=== PATIENT | female | born 1970 | race Caucasian/White ===

== ENCOUNTER → 2017-01-07 08:04 | Outpatient (CLI) | payer OTHER | END | disposition home or self-care (01) | LOC: D.CT 01-04 13:30 | DX: R06.02 Shortness of breath (principal); R53.83 Other fatigue; R91.8 Other nonspecific abnormal finding of lung field ==

== ENCOUNTER → 2019-08-16 16:39 | Outpatient (CLI) | payer BC | END | disposition home or self-care (01) | LOC: D.LAB 16:34 | PROVIDERS: ATTEND Family Medicine | DX: L40.9 Psoriasis, unspecified (principal); Z79.899 Other long term (current) drug therapy ==